=== PATIENT | male | born 1960 | race Caucasian/White ===

== ENCOUNTER 2018-10-17 10:25 | Observation (INO) | payer OTHER ==
[2018-10-17 10:37] VITALS: TEMP 97.9; BMI 39.2
[2018-10-17] MEDS ORDERED: SODIUM CHLORIDE 1,000 ML IV STA (11:53)
[2018-10-17] MEDS ORDERED: FAMOTIDINE 20 MG/50 ML IVPB 20 MG/50 ML MG IVPB ONE ×2 (11:54→12:02)
--- NOTE | 2018-10-17 11:56 | PDOC ---
History of Present Illness <Luis Manuel Hidalgo - Last Filed: 10/17/18 16:19> - General History Source: Patient - History of Present Illness Initial Comments: 10/17/18 13:15 58M with pmh of HLD, GERD and COPD presents to the ED with subxiphoid/ epigastric pain since yesterday morning. Went to Urgent Care, got normal EKG and was refereed to the ER. Pain worsens when he lays down. Hasn't eaten or drank since yesterday morning due to low appetite. Admits to some pain in the midline thoracic area as well. Pain is continuous, relieved by burping. <JeffersonHebert - Last Filed: 10/17/18 17:06> - General Chief Complaint: Pain, Acute Stated Complaint: SENT BY PCP/EPIGASTRIC PAIN Time Seen by Provider: 10/17/18 11:16 Past History <RockyLuis Manuel - Last Filed: 10/17/18 16:19> - Past Medical History Asthma: Yes Cardiac Disorders: Yes COPD: No Hypercholesterolemia: Yes - Surgical History Appendectomy: Yes Orthopedic Surgery: No (rt hip and back surgery) - Immunization History Immunization Up to Date: No - Suicide/Smoking/Psychosocial Hx Smoking Status: Yes Smoking History: Current every day smoker Have you smoked in the past 12 months: Yes Number of Cigarettes Smoked Daily: 20 Information on smoking cessation initiated: No Hx Alcohol Use: No Drug/Substance Use Hx: No Substance Use Type: None Hx Substance Use Treatment: No <Hebert Jefferson - Last Filed: 10/17/18 17:06> - Past Medical History Allergies/Adverse Reactions: Allergies Allergy/AdvReac Type Severity Reaction Status Date / Time cheese Allergy Difficulty Verified 10/17/18 12:45 Breathing Home Medications: Ambulatory Orders Omeprazole Magnesium [Prilosec (OTC)] 40 mg PO DAILY 10/09/14 Simvastatin [Zocor] 80 mg PO HS 10/17/18 Review of Systems - Review of Systems Able to Perform ROS?: Yes Is the patient limited [place] proficient: No Constitutional: No: Symptoms Reported HEENTM: No: Symptoms Reported Respiratory: No: Symptoms reported Cardiac (ROS): No: Symptoms Reported ABD/GI: Yes: See HPI : No: Symptoms Reported Musculoskeletal: No: Symptoms Reported Integumentary: No: Symptoms Reported Neurological: No: Symptoms reported All Other Systems: Reviewed and Negative <Hebert Jefferson - Last Filed: 10/17/18 17:06> *Physical Exam - Vital Signs Last Vital Signs Temp Pulse Resp BP Pulse Ox 97.9 F 88 23 H 174/89 H 93 L 10/17/18 10:29 10/17/18 14:18 10/17/18 14:18 10/17/18 14:18 10/17/18 14:18 <Luis Manuel Hidalgo - Last Filed: 10/17/18 16:19> - Vital Signs Last Vital Signs Temp Pulse Resp BP Pulse Ox 97.9 F 108 H 18 166/92 95 10/17/18 10:29 10/17/18 10:29 10/17/18 10:29 10/17/18 10:29 10/17/18 10:29 - Physical Exam General Appearance: Yes: Obese. No: Apparent Distress HEENT: positive: EOMI, LUIS, Normal ENT Inspection Respiratory/Chest: positive: Lungs Clear, Normal Breath Sounds, Decreased Breath Sounds. negative: Chest Tender, Respiratory Distress Cardiovascular: positive: Regular Rhythm, S1, S2, Tachycardia Gastrointestinal/Abdominal: positive: Normal Bowel Sounds, Tender (epigastric/ subxiphoid), Flat, Soft Musculoskeletal: positive: Normal Inspection. negative: CVA Tenderness Extremity: positive: Normal Capillary Refill, Normal Inspection, Normal Range of Motion Integumentary: positive: Normal Color, Dry, Warm Neurologic: positive: Fully Oriented, Alert, Normal Mood/Affect, Normal Response , Motor Strength 5/5 <JeffersonHebert - Last Filed: 10/17/18 17:06> Heart Score/ECG Review - History History: Slightly suspicious - Electrocardiogram EKG: Normal - Age Age: 45-65 - Risk Factors Risk Factors Heart Score: Yes Hx Hypercholesterolemia, Yes Smoking History, Yes Positive family hx of cardiac disease, Yes Hx Obesity Based on the list above the patient has:: >/=3 risk factors or Hx atherosclerotic disease - Troponin Troponin: 1-3x normal limit - Score Heart Score - Total: 4 <Hebert Jefferson - Last Filed: 10/17/18 17:06> ED Treatment Course - LABORATORY CBC & Chemistry Diagram: 10/17/18 12:12 10/17/18 12:12 - ADDITIONAL ORDERS Additional order review: Laboratory Results 10/17/18 10/17/18 15:00 12:12 Sodium 137 Potassium 4.0 Chloride 101 Carbon Dioxide 32 Anion Gap 4 L BUN 16.9 Creatinine 0.9 Est GFR (CKD-EPI)AfAm 109.50 Est GFR (CKD-EPI)NonAf 94.48 Random Glucose 106 Calcium 9.0 Total Bilirubin 0.7 AST 12 L ALT 25 Alkaline Phosphatase 50 Troponin I 0.07 H 0.07 H Total Protein 7.4 Albumin 4.4 Lipase 121 10/17/18 12:12 RBC 4.78 MCV 96.2 H MCHC 34.5 RDW 13.0 MPV 8.6 Neutrophils % 81.1 Lymphocytes % 13.4 Monocytes % 4.8 Eosinophils % 0.4 Basophils % 0.3 - Medications Given in the ED: ED Medications Discontinued Medications Generic Name Dose Route Start Last Admin Trade Name Freq PRN Reason Stop Dose Admin Aspirin 325 mg 10/17/18 15:18 10/17/18 15:44 Asa - PO 10/17/18 15:19 Not Given ONCE ONE Famotidine/Sodium Chloride 20 mg in 50 mls @ 100 mls/hr 10/17/18 11:54 12:10 Pepcid 20 Mg Premixed Ivpb - IVPB 10/17/18 12:23 100 mls/hr ONCE ONE Administration Sodium Chloride 1,000 mls @ 1,000 mls/hr 10/17/18 11:53 10/17/18 12:29 Normal Saline - IV 10/17/18 12:52 1,000 mls/hr ASDIR STA Administration <Luis Manuel Hidalgo - Last Filed: 10/17/18 16:19> - LABORATORY CBC & Chemistry Diagram: 10/17/18 12:12 10/17/18 12:12 <Hebert Jefferson - Last Filed: 10/17/18 17:06> Medical Decision Making - Medical Decision Making 10/17/18 13:25 58m with HLD, obesity, smoker and HLD presneting with subxiphoid/epigastric reproducible pain. Will need to r/o ACS with trops and EKG, will also consider aortic dissection due to mention of back pain even though pain is mild, with CTA after labs are back and if ACS is ruled out. Also considering GERD which the patioent has a history of, and more generally dyspepsia/gastric ulcers. 10/17/18 13:28 cxr WNL 10/17/18 14:34 Troponin of 0.07. We will r/o dissection with Chest and abdomen pelv CTA. 10/17/18 14:52 No pathology found on chest/abdomen/pelvis CTA, including dissection. Second trops pending at 15:12 10/17/18 16:53 Second trop identical to first one. Patient ambivalant about wanting to stay considering AMA. Convinced patient to stay for tele obs. 10/17/18 17:[address] Chandler <Hebert Jefferson - Last Filed: 10/17/18 17:06> *DC/Admit/Observation/Transfer <Luis Manuel Hidalgo - Last Filed: 10/17/18 16:19> - Discharge Dispostion Decision to Admit order: Yes <Hebert Jefferson - Last Filed: 10/17/18 17:06> Diagnosis at time of Disposition: Atypical chest pain, Elevated troponin I level - Discharge Dispostion Condition at time of disposition: Stable - Referrals Referrals: Caleb Mar MD [Staff Physician] - - Patient Instructions Printed Discharge Instructions: DI for Heart Attack Additional Instructions: Based on your tests today, there is a possibility that your chest pain may represent a heart attack or another potentially life threatening condition. We recommend that you stay in the hospital for further testing and evaluation by a cake washer. If you leave, you may have worsening chest pain, become very ill, or possibly . You will need evaluation by a cake washer as soon as possible. We have provided the number of a cake washer for you to contact. Please return to the emergency department as soon as possible to complete your evaluation.
[2018-10-17 13:15] LABS: ALBUMIN 4.4 g/dl (3.4-5.0); BILIRUBIN,TOTAL 0.7 mg/dL (0.2-1); BLOOD UREA NITROGEN 16.9 mg/dL (7-18); CREATININE 0.9 mg/dL (0.55-1.3); TOT PROT 7.4 g/dl (6.4-8.2)
[2018-10-17 13:35] LABS: BASO % 0.3 % (0-2.0); EOS % 0.4 % (0-4.5); HEMOGLOBIN 15.9 GM/dL (11.7-16.9); LYMPH % 13.4 % (8-40); MCH 33.2 pg (25.7-33.7); MCHC 34.5 g/dl (32.0-35.9); MEAN CELL VOLUME 96.2 fl (80-96); MEAN PLT VOLUME 8.6 fl (7.5-11.1); MONO % 4.8 % (3.8-10.2); NEUT % 81.1 % (42.8-82.8); PLATELET COUNT 203 K/MM3 (134-434); RBC 4.78 M/mm3 (4.00-5.60); WHITE BLOOD COUNT 8.4 K/mm3 (4.0-10.0)
--- NOTE | 2018-10-17 13:46 | PDOC ---
Documentation entered by Sole Miramontes SCRIBE, acting as scribe for Luis Manuel Hidalgo MD. Luis Manuel Hidalgo MD: This documentation has been prepared by the Kulwinder mota Sammi, SCRIBE, under my direction and personally reviewed by me in its entirety. I confirm that the documentation accurately reflects all work, treatment, procedures, and medical decision making performed by me. Attending Attestation - Resident Resident Name: Hebert Jefferson - ED Attending Attestation I have performed the following: I have examined & evaluated the patient, The case was reviewed & discussed with the resident, I agree w/resident's findings & plan, Exceptions are as noted - HPI HPI: 10/17/18 11:48 The patient is a 58 year old male, with a significant PMH of GERD, who presents to the emergency department for evaluation of 1 day of constant, mild substernal /epigastric pain that radiates towards his back. The patient states the epigastric pain is exacerbated when laying flat and is slightly relieved with burping. He notes he has not eaten since yesterday as he felt it would make the pain worse. The patient was seen at an urgent care this morning where they acquired a normal EKG and sent the patient to the ED for further evaluation. - Physicial Exam PE: 10/17/18 13:44 "GENERAL: Awake, alert, and fully oriented, in no acute distress. HEAD: No signs of trauma EYES: PERRLA, EOMI, sclera anicteric, conjunctiva clear ENT: Auricles normal inspection, hearing grossly normal, nares patent, oropharynx clear without exudates. Moist mucosa NECK: Nontender, no stepoffs, Normal ROM, supple, no lymphadenopathy, JVD, or masses LUNGS: Breath sounds equal, clear to auscultation bilaterally. No wheezes, and no crackles HEART: Regular rate and rhythm, normal S1 and S2, no murmurs, rubs or gallops ABDOMEN: + midepigastric TTP, normoactive bowel sounds. No guarding, no rebound. No masses EXTREMITIES: Normal range of motion, no edema. No clubbing or cyanosis. No cords, erythema, or tenderness NEUROLOGICAL: Cranial nerves II through XII intact. 5/5 strength and sensation in all extremities, Normal speech, normal gait, normal cerebellar function SKIN: Warm, Dry, normal turgor, no rashes or lesions noted. - Medical Decision Making 10/17/18 13:44 58 M with epigastric pain radiating to back. Will need to r/o ACS as well as dissection. Pt may also have pancreatitis. - Labs, lipase, trop - CXR - CTA to r/o dissection - GI cocktail 10/17/18 16:14 CTA negative 1st Trop 0.07, labs otherwise wnl 2nd trop stable at 0.07. I discussed results with pt and recommended admission to hospital for further testing and eval by cards. Pt initially resistant to admission. He stated he needed time to get some air and think about it. After stepping outside for 5 minutes, pt now amenable to admission Will admit to hospitalist. Cards consulted
[2018-10-17] MEDS: ASPIRIN 325 MG TABLET PO ONE ×2 (15:31→15:44)
[2018-10-17] MEDS ORDERED: ASPIRIN 325 MG TABLET ONE (15:35)
[2018-10-17] MEDS ORDERED: ACETAMINOPHEN 325 MG TABLET (FP) PO PRN (17:30)
[2018-10-17] MEDS ORDERED: MAG HYDROX/AL HYDROX/SIMETH 30 ML UNIT-DOSE CUP PO PRN (17:32)
--- NOTE | 2018-10-17 17:39 | HP ---
Admitting History and Physical - Primary Care Physician PCP: Rodolfo Mobley - Admission Chief Complaint: I had pain in my breadbasket History of Present Illness: Mr Delatorre is a pleasant 58 year old male who comes in with approximately 36 hours of epigastric pain. He says he was in his normal state of health yesterday morning, he ate breakfast without difficulty. However about 2-3 hours later he developed a gas like pain. He says that he felt like he had to burp but could not. The pain was constant and located in the retrosternal/epigastric area. It was reproducible with palpation. It radiated to the back. He says standing up made it feel better and lying down or flat made it feel worse. It does not seem to be affected by eating or drinking. At its onset it was about 3- 4/10, overnight it was a 10/10. It currently is much less. Aside from the pain he has no other complaints. He denies fevers, chills, lightheadedness, dizziness , passing out, chest pressure, shortness of breath, coughing, nausea, vomiting, diarrhea, difficulty or pain on urination, or swelling. he has chronic constipation and this is unchanged. History Source: Patient Limitations to Obtaining History: No Limitations - Past Medical History Cardiovascular: Yes: Hyperlipdemia Gastrointestinal: Yes: GERD - Past Surgical History Past Surgical History: Yes: Appendectomy, Hernia Repair, Tonsillectomy - Smoking History Smoking history: Current every day smoker Have you smoked in the past 12 months: Yes Aproximately how many cigarettes per day: 20 - Alcohol/Substance Use Hx Alcohol Use: No History of Substance Use: reports: None - Social History ADL: Independent History of Recent Travel: No Home Medications - Allergies Allergies/Adverse Reactions: Allergies Allergy/AdvReac Type Severity Reaction Status Date / Time cheese Allergy Difficulty Verified 10/17/18 12:45 Breathing - Home Medications Home Medications: Ambulatory Orders Omeprazole Magnesium [Prilosec (OTC)] 40 mg PO DAILY 10/09/14 Simvastatin [Zocor] 80 mg PO HS 10/17/18 Family Disease History - Family Disease History Family Disease History: Heart Disease: Mother (CAD/CHF), Brother (HCM) Review of Systems Findings/Remarks: Full review of systems obtained, as per HPI and otherwise negative. Physical Examination Vital Signs: Vital Signs Temperature 36.6 C 10/17/18 10:29 Pulse Rate 108 H 10/17/18 16:30 Respiratory Rate 18 10/17/18 16:30 Blood Pressure 164/94 10/17/18 16:30 O2 Sat by Pulse Oximetry (%) 96 10/17/18 16:30 Constitutional: Yes: No Distress, Calm, Obese Eyes: Yes: Conjunctiva Clear, EOM Intact, PERRL HENT: Yes: Atraumatic, Normocephalic Cardiovascular: Yes: Regular Rate and Rhythm, Other (pain reproducible). No: Gallop, Murmur, Rub Respiratory: Yes: Regular, Wheezes (in all lung [place]). No: Rales, Rhonchi Gastrointestinal: Yes: Normal Bowel Sounds, Soft. No: Distention, Tenderness Extremities: Yes: WNL Edema: No Labs: CBC, BMP 10/17/18 12:12 10/17/18 12:12 Imaging - Results Chest X-ray: Report Reviewed, Image Reviewed Cat Scan: Report Reviewed EKG: Image Reviewed Problem List - Problems (1) Atypical chest pain Assessment/Plan: -patient presents with atypical chest pain -positive family history, smoking, obesity, HLD -admit to telemetry observation -cardiac enzymes x3, first troponin 0.07 -continue aspirin 81mg -cardiology consult and will discuss further testing Code(s): R07.89 - OTHER CHEST PAIN (2) Tobacco abuse Assessment/Plan: -patient with over 30 pack year -counselled on cessation, patient uninterested -made aware that he has wheezing, which he says is chronic, which is concerning for tobacco related lung disease Code(s): Z72.0 - TOBACCO USE (3) HLD (hyperlipidemia) Assessment/Plan: -continue statin -check lipid panel in am Code(s): E78.5 - HYPERLIPIDEMIA, UNSPECIFIED (4) GERD (gastroesophageal reflux disease) Assessment/Plan: -continue PPI -prn maalox Code(s): K21.9 - GASTRO-ESOPHAGEAL REFLUX DISEASE WITHOUT ESOPHAGITIS (5) Obesity (BMI 30-39.9) Assessment/Plan: -will need outpatient weight loss program Code(s): E66.9 - OBESITY, UNSPECIFIED
[2018-10-17] MEDS ORDERED: ATORVASTATIN CA 40 MG TABLET (FP) ONE (21:38)
[2018-10-17] MEDS ORDERED: ATORVASTATIN CA 40 MG TABLET (FP) PO SCH (22:00)
--- NOTE | 2018-10-18 08:22 | PN ---
Progress Note, Physician Chief Complaint: Mr Delatorre says he is feeling good and is without complaint. Chest/abdominal pain has resolved. Denies sob and n/v. - Current Medication List Current Medications: Active Medications Acetaminophen (Tylenol -) 650 mg PO Q4H PRN PRN Reason: MILD PAIN Al Hydroxide/Mg Hydroxide (Mylanta Oral Suspension -) 30 ml PO Q6H PRN PRN Reason: DYSPEPSIA Aspirin (Asa -) 81 mg PO DAILY VERNA Atorvastatin Calcium (Lipitor -) 40 mg PO HS VERNA Last Admin: 10/17/18 21:40 Dose: 40 mg Lisinopril (Prinivil) 10 mg PO DAILY VERNA Pantoprazole Sodium (Protonix -) 40 mg PO DAILY VERNA - Objective Vital Signs: Vital Signs Temperature 36.6 C 10/17/18 10:29 Pulse Rate 88 10/18/18 06:32 Respiratory Rate 18 10/18/18 06:32 Blood Pressure 160/79 10/18/18 06:32 O2 Sat by Pulse Oximetry (%) 95 10/18/18 06:32 Constitutional: Yes: No Distress, Calm, Obese Cardiovascular: Yes: Regular Rate and Rhythm. No: Gallop, Murmur, Rub Respiratory: Yes: Regular, CTA Bilaterally. No: Rales, Rhonchi, Wheezes Gastrointestinal: Yes: Normal Bowel Sounds, Soft. No: Distention, Tenderness Extremities: Yes: WNL Edema: No Labs: CBC, BMP 10/17/18 12:12 10/17/18 12:12 Problem List - Problems (1) Atypical chest pain Code(s): R07.89 - OTHER CHEST PAIN (2) Tobacco abuse Code(s): Z72.0 - TOBACCO USE (3) HLD (hyperlipidemia) Code(s): E78.5 - HYPERLIPIDEMIA, UNSPECIFIED (4) GERD (gastroesophageal reflux disease) Code(s): K21.9 - GASTRO-ESOPHAGEAL REFLUX DISEASE WITHOUT ESOPHAGITIS (5) Obesity (BMI 30-39.9) Code(s): E66.9 - OBESITY, UNSPECIFIED (6) HTN (hypertension) Code(s): I10 - ESSENTIAL (PRIMARY) HYPERTENSION Assessment/Plan (1) Atypical chest pain Assessment/Plan: -symptoms resolved -troponins currently peaked at 0.08 but awaiting last troponin -cardiology consulted and will see -will follow up cardiology recommendations about ECHO and stress test Code(s): R07.89 - OTHER CHEST PAIN (2) Tobacco abuse Assessment/Plan: -patient with over 30 pack year -patient made aware that he cannot go outside to smoke while in the hospital Code(s): Z72.0 - TOBACCO USE (3) HLD (hyperlipidemia) Assessment/Plan: -continue statin -check lipid panel Code(s): E78.5 - HYPERLIPIDEMIA, UNSPECIFIED (4) GERD (gastroesophageal reflux disease) Assessment/Plan: -continue PPI -prn maalox Code(s): K21.9 - GASTRO-ESOPHAGEAL REFLUX DISEASE WITHOUT ESOPHAGITIS (5) Obesity (BMI 30-39.9) Assessment/Plan: -will need outpatient weight loss program Code(s): E66.9 - OBESITY, UNSPECIFIED (6) HTN -elevated overnight -may be secondary to hospitalization and nicotine withdrawal -however would benefit from better control -start lisinopril Dispo -possible discharge today pending cardiology recommendations
[2018-10-18] MEDS ORDERED: ASPIRIN 81 MG CHEWABLE TABLETS PO SCH (10:00)
[2018-10-18] MEDS ORDERED: LISINOPRIL 10 MG TABLET (FP) PO SCH (10:00)
[2018-10-18] MEDS ORDERED: PANTOPRAZOLE 40 MG TABLET (FP) PO SCH (10:00)
--- NOTE | 2018-10-18 13:02 | EKG ---
Test Reason : Blood Pressure : / mmHG Vent. Rate : 100 BPM Atrial Rate : 100 BPM P-R Int : 150 ms QRS Dur : 104 ms QT Int : 378 ms P-R-T Axes : 042 095 060 degrees QTc Int : 487 ms NORMAL SINUS RHYTHM RIGHTWARD AXIS PROLONGED QT ABNORMAL ECG WHEN COMPARED WITH ECG OF 11-JUN-2011 15:15, NO SIGNIFICANT CHANGE WAS FOUND Confirmed by MD ROBLES, ZIGGY ([id number]) on 10/18/2018 1:02:10 PM Referred By: Confirmed By:ZIGGY ARBOLEDA MD
--- NOTE | 2018-10-18 13:21 | CON.CARD ---
Consult Consult Specialty:: Cardiology Referred by:: Dr. Chandler Reason for Consultation:: Chest/epigastric pain with mildly elevated troponin. - History of Present Illness Chief Complaint: Chest/epigastric pain History of Present Illness: 58 year old obese man, active smoker, with a PMHx of HTN, hyperlipidemia, COPD and GERD presented to ED 10/17/18 with persistent epigastric pain. The patient developed epigastric pain one day prior to his presentation. The epigastric pain lasted approximately 36 hours. The pain was constant and located in the retrosternal/epigastric area. It was reproducible with palpation. It radiated to the back. He says standing up made it feel better and lying down or flat made it feel worse. It does not seem to be affected by eating or drinking. The epigastric pain resolved last night. He was found to have borderline troponin elevation (0.07 and 0.08) with mild sinus tachycardia and hypertension. ECG shows sinus rhythm with RAD and normal ST and T. - History Source History Provided By: Patient, Family Member, Medical Record Limitations to Obtaining History: No Limitations - Past Medical History Cardio/Vascular: Yes: Hyperlipdemia Gastrointestinal: Yes: GERD - Past Surgical History Past Surgical History: Yes: Appendectomy, Hernia Repair, Tonsillectomy - Alcohol/Substance Use Hx Alcohol Use: No History of Substance Use: reports: None - Smoking History Smoking history: Current every day smoker Have you smoked in the past 12 months: Yes Aproximately how many cigarettes per day: 20 - Social History ADL: Independent History of Recent Travel: No Home Medications - Allergies Allergies/Adverse Reactions: Allergies Allergy/AdvReac Type Severity Reaction Status Date / Time cheese Allergy Difficulty Verified 10/17/18 12:45 Breathing - Home Medications Home Medications: Ambulatory Orders Omeprazole Magnesium [Prilosec (OTC)] 40 mg PO DAILY 10/09/14 Simvastatin [Zocor] 80 mg PO HS 10/17/18 Aspirin [ASA -] 81 mg PO DAILY tab.chew 10/18/18 Lisinopril [Prinivil] 10 mg PO DAILY #30 tablet 10/18/18 Family Disease History - Family Disease History Family Disease History: Heart Disease: Mother (CAD/CHF), Brother (HCM) Review of Systems - Review of Systems Constitutional: reports: No Symptoms Eyes: reports: No Symptoms HENT: reports: No Symptoms Neck: reports: No Symptoms Cardiovascular: reports: No Symptoms Respiratory: reports: No Symptoms Gastrointestinal: reports: Abdominal Pain Genitourinary: reports: No Symptoms Breasts: reports: No Symptoms Reported Musculoskeletal: reports: No Symptoms Integumentary: reports: No Symptoms Neurological: reports: No Symptoms Endocrine: reports: No Symptoms Hematology/Lymphatic: reports: No Symptoms Psychiatric: reports: No Symptoms Vital Signs: Vital Signs Temperature 97.9 F 10/17/18 10:29 Pulse Rate 101 H 10/18/18 10:30 Respiratory Rate 18 10/18/18 10:30 Blood Pressure 154/93 10/18/18 10:30 O2 Sat by Pulse Oximetry (%) 92 L 10/18/18 10:30 General: Well developed. Obese. No acute distress. Head: Normocephalic. Atraumatic, Eyes: PERRLA, EOMI. Sclerae anicteric. Conjunctivae clear. Neck: Supple. No JVD. No bruits. Heart: Normal S1, S2: Regular rhythm and rate. No murmur. No gallop or rub. Lungs: Symmetrical poor air entry with prolonged expiration and diffuse rhonchi. No crackles or wheezing. Abdomen: Soft. Bowel sound positive. Non tender. No masses. Extremities: No edema. No clubbing or cyanosis. PD 2+, equal bilaterally. Neuro: Intact, no focal findings. AAO X3. - Other Data Labs, Other Data: CBC, BMP 10/17/18 12:12 10/17/18 12:12 Troponin, BNP 10/17/18 10/17/18 15:00 20:30 Troponin I 0.07 H 0.08 H Troponin, BNP 10/17/18 10/17/18 15:00 20:30 Troponin I 0.07 H 0.08 H Assessment/Plan 58 year old obese man, active smoker, with a PMHx of HTN, hyperlipidemia, COPD and GERD presented to ED 10/17/18 with persistent epigastric pain. He was found to have borderline troponin elevation (0.07 and 0.08) with mild sinus tachycardia and hypertension. ECG shows sinus rhythm with RAD and normal ST and T. Epigastric pain/atypical chest pain with borderline troponin elevation in the settings of severe hypertension (181/92) and tachycardia (101 bpm). The borderline troponin elevation could be caused by demand ischemia with possible underline CAD. The patient has no active angina and no physical signs of CHF. 1) The patient can be discharged (as he requested) from ED with close out-pt follow up. One of us would be happy to see him in office early this week. 2) Start metoprolol succinate 50 mg daily. 3) Change simvastatin to high intensity statin, atorvastatin 80 mg daily. 4) Continue aspirin and lisinopril. Please do not hesitate to call me directly at [phone] at any time if any further questions or additional issue arises regarding this patient.
--- NOTE | 2018-10-18 13:28 | DS ---
Physical Examination Vital Signs: Vital Signs Temperature 36.6 C 10/17/18 10:29 Pulse Rate 101 H 10/18/18 10:30 Respiratory Rate 18 10/18/18 10:30 Blood Pressure 154/93 10/18/18 10:30 O2 Sat by Pulse Oximetry (%) 92 L 10/18/18 10:30 Labs: CBC, BMP 10/17/18 12:12 10/17/18 12:12 Discharge Summary Reason For Visit: ATYPICAL CHEST PAIN/ELEVATED TROPONIN LEVEL Current Active Problems Atypical chest pain (Acute) Elevated troponin I level (Acute) GERD (gastroesophageal reflux disease) (Acute) HLD (hyperlipidemia) (Acute) HTN (hypertension) (Acute) Obesity (BMI 30-39.9) (Acute) Tobacco abuse (Acute) Hospital Course: Please refer to progress note for physical exam. Mr Delatorre is a 58 year old male who came in with atypical chest pain. He was admitted to the hospital on telemetry observation. Cardiac enzymes x3 were sent and negative. His EKG did not show signs of ACS. His chest pain resolved while here. He was seen by cardiology and cleared for discharge. He will follow up with Dr Taylor to schedule an outpatient stress test. He was found to be hypertensive and lisinopril was added. Aspirin 81mg daily was also added to his regimen. 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 32 minutes spent in preparation of this discharge Condition: Stable - Instructions Diet, Activity, Other Instructions: resume previous diet and activity. Follow up with Dr Taylor to schedule an outpatient stress test. Follow up with your PCP to further discuss smoking cessation. Referrals: Shiraz Taylor MD [Staff Physician] - Rodolfo Mobley MD [Staff Physician] - Disposition: HOME - Home Medications Comprehensive Discharge Medication List: Ambulatory Orders Omeprazole Magnesium [Prilosec (OTC)] 40 mg PO DAILY 10/09/14 Simvastatin [Zocor] 80 mg PO HS 10/17/18 Aspirin [ASA -] 81 mg PO DAILY tab.chew 10/18/18 Lisinopril [Prinivil] 10 mg PO DAILY #30 tablet 10/18/18
[2018-10-18 14:04] VITALS: BP 121/72; PULSE 106
== END 2018-10-18 14:00 | disposition home or self-care (01) ==
LOC: JER 10:25 → JERBED 16:54
PROVIDERS: ADMIT Internal Medicine; ATTEND Internal Medicine
PROC: 3E033GC Introduction of Other Therapeutic Substance into Peripheral Vein, Percutaneous Approach (ICD-10-PCS; principal; 2018-10-17)
PROC: 3E0337Z Introduction of Electrolytic and Water Balance Substance into Peripheral Vein, Percutaneous Approach (ICD-10-PCS; 2018-10-17)
DX: R07.89 Other chest pain (principal); R77.8 Other specified abnormalities of plasma proteins; E78.5 Hyperlipidemia, unspecified; K21.9 Gastro-esophageal reflux disease without esophagitis; J44.9 Chronic obstructive pulmonary disease, unspecified; F17.210 Nicotine dependence, cigarettes, uncomplicated; E66.9 Obesity, unspecified; Z68.39 Body mass index [BMI] 39.0-39.9, adult
CPT/HCPCS: 36415; 71045-TC-FY; 71275-TC; 74174-TC; 80053; 82550; 82553; 83690; 84484; 85025; 93005; 93010; 99285-25; G0378; J7030

== ENCOUNTER 2019-06-27 22:33 | Emergency (ER) | payer OTHER ==
[2019-06-27 23:23] VITALS: BMI 35.9
[2019-06-28] MEDS ORDERED: ACETAMINOPHEN 1000 MG/100 ML VIAL (NON FORMULARY) IVPB ONE (00:06)
[2019-06-28] MEDS ORDERED: SODIUM CHLORIDE 0.9% 1000 ML INFUS.BAG IV ONE (00:06)
[2019-06-28] MEDS ORDERED: ACETAMINOPHEN INJECTION 100 ML IVPB ONE (00:10)
[2019-06-28] MEDS ORDERED: CLINDAMYCIN 900 MG PREMIX IVPB 900 MG/50 ML BAG IVPB ONE ×2 (00:17→00:30)
[2019-06-28] MEDS ORDERED: CLINDAMYCIN 600MG PREMIX IVPB 600 MG/50 ML BAG IVPB ONE (00:29)
[2019-06-28] MEDS ORDERED: VANCOMYCIN 1 GRAM (PRE-DOCKED) 1,000 MG/250 ML BAG IVPB ONE (00:29)
[2019-06-28 01:20] LABS: BASO % 0.1 % (0-2.0); EOS % 0.6 % (0-4.5); HEMATOCRIT 41.4 % (35.4-49); HEMOGLOBIN 14.4 GM/dL (11.7-16.9); LYMPH % 5.5 % (8-40); MCHC 34.7 g/dl (32.0-35.9); MEAN CELL VOLUME 94.8 fl (80-96); MEAN PLT VOLUME 8.6 fl (7.5-11.1); MONO % 4.6 % (3.8-10.2); NEUT % 89.2 % (42.8-82.8); PLATELET COUNT 247 K/MM3 (134-434); RBC 4.36 M/mm3 (4.00-5.60); RDW 13.2 % (11.9-15.9); WHITE BLOOD COUNT 9.8 K/mm3 (4.0-10.0)
[2019-06-28 01:27] LABS: EPI CELLS 6.1 /HPF (0-5/HPF); HYALINE CASTS 4 /lpf (0-8); URINE APPEARANCE CLOUDY; URINE BACTERIA 12.7 /hpf (NEGATIVE); URINE BILIRUBIN NEGATIVE (NEGATIVE); URINE COLOR YELLOW; URINE GLUCOSE (UA) NEGATIVE (NEGATIVE); URINE KETONE NEGATIVE (NEGATIVE); URINE LEUK ESTERASE TRACE (NEGATIVE); URINE NITRITE NEGATIVE (NEGATIVE); URINE PROTEIN 2+ (NEGATIVE); URINE RBC 412 /hpf (0-4); URINE WBC 45 /hpf (0-5)
[2019-06-28 01:42] LABS: ALBUMIN 3.9 g/dl (3.4-5.0); BILIRUBIN,TOTAL 0.3 mg/dL (0.2-1); BLOOD UREA NITROGEN 28.1 mg/dL (7-18); CALCIUM 9.3 mg/dL (8.5-10.1); CREATININE 1.6 mg/dL (0.55-1.3); POTASSIUM 4.7 mmol/L (3.5-5.1); TOT PROT 7.2 g/dl (6.4-8.2)
[2019-06-28 01:44] LABS: INR 1.09 (0.83-1.09); PROTHROMBIN TIME (PATIENT) 12.9 SEC (9.7-13.0)
[2019-06-28 01:47] LABS: ACTIVATED PTT 37.3 SECONDS (25.2-36.5)
--- NOTE | 2019-06-28 02:09 | PDOC ---
Documentation entered by Nina Grace SCRIBE, acting as scribe for Essie Davidson MD. Essie Davidson MD: This documentation has been prepared by the scribe, Nina Grace SCRIBE, under my direction and personally reviewed by me in its entirety. I confirm that the documentation accurately reflects all work, treatment, procedures, and medical decision making performed by me. Attending Attestation - Resident Resident Name: CarltonlizruslanAnatoly - ED Attending Attestation I have performed the following: I have examined & evaluated the patient, The case was reviewed & discussed with the resident, I agree w/resident's findings & plan - HPI HPI: 06/28/19 00:33 The patient is a 59-year-old male with a past medical history significant for recently diagnosed HTN who presents to the emergency department with left index finger wound. The patient reports on Friday he got a bug bite, was seen at an Urgent Care where he was prescribed an antibiotics. The patient reports the finger worsened, the finger was swollen, and there was a pustule at the proximal dorsal aspect of the index finger. The patient followed up at Urgent Care, where he was given another antibiotic. The patient presents today for worsening finger swelling and right flank pain. PCP: Dr. sanabria - Physicial Exam PE: 06/28/19 00:34 GENERAL: Afebrile, Awake, alert, and fully oriented, in no acute distress HEAD: No signs of trauma NECK: Normal ROM, supple. LUNGS: Breath sounds equal, clear to auscultation bilaterally. No wheezes, and no crackles HEART: Regular rate and rhythm. ABDOMEN: +minimal right flank pain, no pain with palpation or percussion. EXTREMITIES: +Right hand swelling, large 1 cm pustule proximal, medial to the dorsal aspect of the index finger, the index finger bigger than other fingers, swelling to the lateral aspect of the hand up to the forearm. NEUROLOGICAL: Cranial nerves II through XII grossly intact. Normal speech, normal gait SKIN: Discoloration. Warm, Dry, no rashes. - Medical Decision Making 06/28/19 04:00 Patient Name: AMOS FLORES THIS IS A PRELIMINARY REPORT FROM [facility] DATE OF SERVICE: 2019-06-28 02:10:06 IMAGES: [id number] EXAM: CT ABDOMEN AND PELVIS WITHOUT INTRAVENOUS CONTRAST. HISTORY: Right flank pain COMPARISON: None. FINDINGS: 1. There is mild right hydroureteronephrosis and mild right perinephric/right periureteral fatty stranding without demonstration of an obstructing right ureteral stone. No stone is seen within a collapsed bladder. Findings suggest a recently passed stone. 2. No stone seen within the left renal collecting system. 3. Colonic diverticulosis without definite acute diverticulitis. 4. Gallstones. 5. No bowel obstruction, significant ascites or free air 06/28/19 04:23 Pt will be transferred to [facility], as we have no hnd surge in our hospital.
--- NOTE | 2019-06-28 02:28 | PDOC ---
History of Present Illness - General Chief Complaint: Back Pain Stated Complaint: BACK PAIN Time Seen by Provider: 06/27/19 23:53 History Source: Patient Exam Limitations: No Limitations - History of Present Illness Initial Comments: 06/28/19 02:24 59M with a PMH of HTN, HLD, and GERD who presents to the ER with multiple complaints. The patient states that he had sudden onset R flank pain which started around 2100 last night. The pain is sharp, nonradiating, and not associated with movement, dysuria, hematuria, nausea, vomiting. He did not take anything for the pain and denies any exacerbating or alleviating factors. The patient also complains of a L hand infection. The patient states that he first noticed "something small" 5 days ago. Since then, it has become more swollen, tender, and the pain has worsened. He went to an and had an abscess drained and was put on antibiotics. The antibiotics were switched (currently on day 2 of abx after the switch) and he states that the redness and swelling is getting worse. Denies fever, chills, CP, SOB. Past History - Past Medical History Allergies/Adverse Reactions: Allergies Allergy/AdvReac Type Severity Reaction Status Date / Time cheese Allergy Difficulty Verified 06/27/19 23:23 Breathing Home Medications: Ambulatory Orders Omeprazole Magnesium [Prilosec (OTC)] 40 mg PO DAILY 10/09/14 Simvastatin [Zocor] 80 mg PO HS 10/17/18 Lisinopril [Prinivil] 10 mg PO DAILY #30 tablet 10/18/18 Budesonide/Formeterol Fumarate [SYMBICORT 160/4.5mcg -] 2 inh PO BID 06/28/19 Metoprolol Succinate 25 mg PO DAILY 06/28/19 Asthma: Yes Cardiac Disorders: Yes COPD: No Hypercholesterolemia: Yes - Surgical History Appendectomy: Yes Orthopedic Surgery: No (rt hip and back surgery) - Immunization History Immunization Up to Date: No - Psycho Social/Smoking Cessation Hx Smoking Status: Yes Smoking History: Never smoked Have you smoked in the past 12 months: No Number of Cigarettes Smoked Daily: 20 Information on smoking cessation initiated: No Hx Alcohol Use: No Drug/Substance Use Hx: No Substance Use Type: None Hx Substance Use Treatment: No Review of Systems - Review of Systems Able to Perform ROS?: Yes Comments:: 06/28/19 03:23 GENERAL/CONSTITUTIONAL: No fever or chills. No weakness. HEAD, EYES, EARS, NOSE AND THROAT: No change in vision. No ear pain or discharge. No sore throat. CARDIOVASCULAR: No chest pain, palpitations, or lightheadedness. RESPIRATORY: No cough, wheezing, shortness of breath, or hemoptysis. GASTROINTESTINAL: No abdominal pain, nausea, vomiting, diarrhea, or constipation. GENITOURINARY: + for R flank pain. No dysuria, frequency, hematuria, or change in urination. MUSCULOSKELETAL: No joint or muscle swelling or pain. No neck or back pain. SKIN: + for infected L hand. No rash or lesions. NEUROLOGIC: No headache, numbness, tingling, focal weakness, loss of consciousness, or change in strength/sensation. Is the patient limited Tamazight proficient: No *Physical Exam - Vital Signs Last Vital Signs Temp Pulse Resp BP Pulse Ox 97.6 F 90 22 H 195/83 H 92 L 06/27/19 23:20 06/27/19 23:20 06/27/19 23:20 06/27/19 23:20 06/27/19 23:20 - Physical Exam 06/28/19 03:24 GENERAL: Well developed, well nourished. Awake and alert. No acute distress. HEENT: Normocephalic, atraumatic. Hearing grossly normal. Moist mucous membranes. PERRLA, EOMI. No conjunctival pallor. Sclera are non-icteric. NECK: Supple. Full ROM. No JVD. CARDIOVASCULAR: Regular rate and rhythm. No murmurs, rubs, or gallops. Distal pulses are 2+ and symmetric. PULMONARY: No evidence of respiratory distress. Lungs clear to auscultation bilaterally. No wheezing, rales, or rhonchi. ABDOMINAL: Soft. Non-tender. Non-distended. No rebound or guarding. GENITOURINARY: No CVA tenderness bilaterally. MUSCULOSKELETAL: Normal range of motion at all joints. No bony deformities or tenderness. EXTREMITIES: No cyanosis. No clubbing. 1-2+ b/l LE edema. No calf tenderness or swelling. SKIN: L hand is swollen. L index finger noted to have necrotic tissue on dorsal surface with erythema spreading to mid-metacarpals. Pitting edema noted in L hand. Neurovascularly intact. No jaundice. NEUROLOGICAL: Alert, awake, appropriate. Cranial nerves 2-12 intact. No deficits to light touch and temperature in lower extremities. 5/5 strength in quadriceps, hamstrings, and gastrocnemius. Normal speech. Gait is normal without ataxia. PSYCHIATRIC: Cooperative. Good eye contact. Appropriate mood and affect. ED Treatment Course - LABORATORY CBC & Chemistry Diagram: 06/28/19 00:57 06/28/19 00:57 - ADDITIONAL ORDERS Additional order review: Laboratory Results 06/28/19 06/28/19 06/28/19 00:57 00:57 00:57 PT with INR INR PTT (Actin FS) Sodium 142 Potassium 4.7 Chloride 108 H Carbon Dioxide 27 Anion Gap 6 L BUN 28.1 H Creatinine 1.6 H Est GFR (CKD-EPI)AfAm 54.23 Est GFR (CKD-EPI)NonAf 46.79 Random Glucose 168 H Lactic Acid 1.1 Calcium 9.3 Total Bilirubin 0.3 AST 35 ALT 68 H Alkaline Phosphatase 59 Troponin I Total Protein 7.2 Albumin 3.9 Urine Color Yellow Urine Appearance Cloudy Urine pH 7.0 Ur Specific [place] 1.024 Urine Protein 2+ H Urine Glucose (UA) Negative Urine Ketones Negative Urine Blood 3+ H Urine Nitrite Negative Urine Bilirubin Negative Urine Urobilinogen 1.0 Ur Leukocyte Esterase Trace Urine WBC (Auto) 45 Urine RBC (Auto) 412 Urine Casts (Auto) 4 U Epithel Cells (Auto) 6.1 U Sm Round Cell (Auto) None seen Urine Bacteria (Auto) 12.7 06/28/19 06/28/19 00:57 00:57 PT with INR 12.90 INR 1.09 PTT (Actin FS) 37.3 H Sodium Potassium Chloride Carbon Dioxide Anion Gap BUN Creatinine Est GFR (CKD-EPI)AfAm Est GFR (CKD-EPI)NonAf Random Glucose Lactic Acid Calcium Total Bilirubin AST ALT Alkaline Phosphatase Troponin I 0.03 Total Protein Albumin Urine Color Urine Appearance Urine pH Ur Specific [place] Urine Protein Urine Glucose (UA) Urine Ketones Urine Blood Urine Nitrite Urine Bilirubin Urine Urobilinogen Ur Leukocyte Esterase Urine WBC (Auto) Urine RBC (Auto) Urine Casts (Auto) U Epithel Cells (Auto) U Sm Round Cell (Auto) Urine Bacteria (Auto) 06/28/19 00:57 RBC 4.36 MCV 94.8 MCHC 34.7 RDW 13.2 MPV 8.6 Neutrophils % 89.2 H Lymphocytes % 5.5 L D Monocytes % 4.6 Eosinophils % 0.6 Basophils % 0.1 - RADIOLOGY Radiology Studies Ordered: Category Date Time Status ABDOMEN & PELVIS CT W/O CONTR [CT] Stat CT Scan 06/28/19 02:13 Taken HAND- LEFT [RAD] Stat Radiology 06/28/19 00:07 Taken - Medications Given in the ED: ED Medications Discontinued Medications Generic Name Dose Route Start Last Admin Trade Name Leela PRN Reason Stop Dose Admin Acetaminophen 1,000 mg 06/28/19 00:06 06/28/19 01:03 Ofirmev Injection - IVPB 06/28/19 00:07 1,000 mg ONCE ONE Administration Clindamycin Phosphate 900 mg in 50 mls @ 100 mls/hr 06/28/19 00:17 06/28/19 01:03 Cleocin 900 Mg Premix Ivpb - IVPB 06/28/19 00:46 100 mls/hr ONCE ONE Administration Sodium Chloride 1,000 ml 06/28/19 00:06 06/28/19 01:02 Normal Saline - IV 06/28/19 00:07 1,000 ml ONCE ONE Administration Medical Decision Making - Medical Decision Making 06/28/19 03:14 59M with a PMH of HTN who presents with a worsening L hand infection and R flank pain. Diagnosis unlikely to be related but patient has STEVEN, CBC showing L shift, and UA showing hematuria. Flank pain ddx nephrolithiasis vs AAA vs renal ca. Of note, pt's hand is showing signs of worsening infection and may require surgical intervention. 1 dose of clindamycin given. Case d/w Dr. Smith, plastics at [facility], who accepts patient's transfer. Pt auto-accepted to ER. Discharge - Discharge Information Problems reviewed: Yes Clinical Impression/Diagnosis: Infected hand, STEVEN (acute kidney injury) Condition: Guarded Disposition: TRANSFER ACUTE CARE/OTHER HOSP - Admission No - Follow up/Referral Referrals: Rodolfo Mobley MD [Primary Care Provider] - - Patient Discharge Instructions - Post Discharge Activity - Transfer to Acute Care Facility Receiving Facility Name: [facility] Accepting Physician:: Dr. Smith
[2019-06-28] MEDS ORDERED: VANCOMYCIN 1,000 MG in DEXTROSE 5%-WATER - 250 ML IVPB ONE (03:00)
[2019-06-28] MEDS ORDERED: morphine SULFATE 4 MG/ML VIAL ONE (03:21)
[2019-06-28] MEDS ORDERED: morphine CARPU-JECT 4 MG/1 ML DISP.SYRIN IVPUSH ONE (03:42)
[2019-06-28 03:43] VITALS: BP 176/72; PULSE 98; TEMP 98.4
--- NOTE | 2019-06-28 09:11 | EKG ---
Test Reason : Blood Pressure : / mmHG Vent. Rate : 093 BPM Atrial Rate : 093 BPM P-R Int : 166 ms QRS Dur : 102 ms QT Int : 356 ms P-R-T Axes : 048 079 052 degrees QTc Int : 442 ms NORMAL SINUS RHYTHM NORMAL ECG WHEN COMPARED WITH ECG OF 17-OCT-2018 10:27, NO SIGNIFICANT CHANGE WAS FOUND Confirmed by Radha Centeno ([id number]) on 06/28/2019 9:11:35 AM Referred By: Confirmed By:Radha Centeno
== END 2019-06-28 04:29 | disposition short-term general hospital (02) ==
LOC: JER 22:33
PROC: 3E03329 Introduction of Other Anti-infective into Peripheral Vein, Percutaneous Approach (ICD-10-PCS; principal; 2019-06-27)
PROC: 3E033NZ Introduction of Analgesics, Hypnotics, Sedatives into Peripheral Vein, Percutaneous Approach (ICD-10-PCS; 2019-06-27)
PROC: 3E033NZ Introduction of Analgesics, Hypnotics, Sedatives into Peripheral Vein, Percutaneous Approach (ICD-10-PCS; 2019-06-27)
PROC: 3E03329 Introduction of Other Anti-infective into Peripheral Vein, Percutaneous Approach (ICD-10-PCS; 2019-06-27)
DX: L08.89 Other specified local infections of the skin and subcutaneous tissue (principal); N17.9 Acute kidney failure, unspecified; I10 Essential (primary) hypertension; E78.00 Pure hypercholesterolemia, unspecified; Z87.09 Personal history of other diseases of the respiratory system
CPT/HCPCS: 36415; 71046-TC-FY; 73130-TC-LT-FY; 74176-TC; 80053; 81003; 83605; 84484; 85025; 85610; 85730; 87040; 87086; 93005; 93010; 99285-25; J0131; J7030

== ENCOUNTER 2022-03-28 16:58 | Emergency (ER) | payer OTHER ==
[2022-03-28 17:28] VITALS: TEMP 98.1; BMI 38.6
[2022-03-28] MEDS ORDERED: LIDOCAINE HCL 2% JELLY 10 ML CARTRIDGE PR ONE (17:42)
[2022-03-28 18:31] LABS: HEMATOCRIT 39.6 % (35.4-49); HEMOGLOBIN 13.6 GM/dL (11.7-16.9); MCH 33.1 pg (25.7-33.7); MCHC 34.4 g/dl (32.0-35.9); MEAN CELL VOLUME 96.2 fl (80-96); MEAN PLT VOLUME 7.8 fl (7.5-11.1); PLATELET COUNT 275 10^3/uL (134-434); RBC 4.12 M/mm3 (4.00-5.60); RDW 12.9 % (11.9-15.9); WHITE BLOOD COUNT 7.2 K/mm3 (4.0-10.0)
[2022-03-28 18:35] LABS: EPI CELLS >36 /uL (0-25.1); HYALINE CASTS 0 /uL (0-3.1); URINE APPEARANCE CLEAR; URINE BACTERIA 54 /uL (0-1359); URINE BILIRUBIN NEGATIVE (NEGATIVE); URINE COLOR YELLOW; URINE GLUCOSE (UA) NEGATIVE (NEGATIVE); URINE KETONE NEGATIVE (NEGATIVE); URINE LEUK ESTERASE NEGATIVE (NEGATIVE); URINE NITRITE NEGATIVE (NEGATIVE); URINE PROTEIN 2+ (NEGATIVE); URINE RBC 3756 /uL (0-23.9); URINE UROBILINOGEN 0.2 mg/dL (0.2-1.0); URINE WBC 47 /uL (0-25.8)
[2022-03-28 18:42] LABS: CALCIUM 8.9 mg/dL (8.5-10.1)
[2022-03-28 18:43] LABS: ALBUMIN 3.8 g/dl (3.4-5.0); BLOOD UREA NITROGEN 33.9 mg/dL (7-18)
[2022-03-28 18:48] LABS: BILIRUBIN,TOTAL 0.2 mg/dL (0.2-1); TOT PROT 7.2 g/dl (6.4-8.2)
[2022-03-28 19:02] VITALS: BP 151/80; PULSE 93; RESP 20
== END 2022-03-28 22:43 | disposition left against medical advice (07) ==
LOC: JER 16:58
DX: N17.9 Acute kidney failure, unspecified (principal); R31.9 Hematuria, unspecified; R33.9 Retention of urine, unspecified; K57.90 Diverticulosis of intestine, part unspecified, without perforation or abscess without bleeding
CPT/HCPCS: 36415; 72192-TC; 80053; 81003; 85027; 87086; 99284-25; C9803-CS; U0003; U0005

== ENCOUNTER 2022-03-29 11:07 | Emergency (ER) | payer OTHER ==
[2022-03-29 11:21] VITALS: TEMP 97.9; BMI 38.6
[2022-03-29] MEDS ORDERED: ACETAMINOPHEN 1000 MG/100 ML BAG IVPB ONE (12:45)
[2022-03-29] MEDS ORDERED: ACETAMINOPHEN INJECTION 100 ML IVPB ONE (12:49)
[2022-03-29] MEDS ORDERED: METOPROLOL TARTRATE 25 MG TABLET (FP) PO ONE (12:57)
[2022-03-29] MEDS ORDERED: morphine CARPU-JECT 4 MG/1 ML DISP.SYRIN IVPUSH ONE (12:57)
[2022-03-29] MEDS ORDERED: LACTATED RINGERS SOLUTION 1000 ML INFUS.BAG IV ONE (12:58)
[2022-03-29] MEDS ORDERED: METOPROLOL TARTRATE 25 MG TABLET (FP) ONE (13:14)
[2022-03-29] MEDS ORDERED: morphine SULFATE 4 MG/ML VIAL ONE (13:14)
[2022-03-29 13:25] LABS: ALBUMIN 3.7 g/dl (3.4-5.0); BLOOD UREA NITROGEN 28.7 mg/dL (7-18); CALCIUM 9.4 mg/dL (8.5-10.1)
[2022-03-29 13:28] LABS: CREATININE 1.6 mg/dL (0.55-1.3)
[2022-03-29 13:30] LABS: BILIRUBIN,TOTAL 0.5 mg/dL (0.2-1); TOT PROT 7.1 g/dl (6.4-8.2)
[2022-03-29 13:42] LABS: BASO % 0.2 % (0-2.0); EOS % 0.5 % (0-4.5); HEMATOCRIT 41.2 % (35.4-49); HEMOGLOBIN 13.8 GM/dL (11.7-16.9); LYMPH % 7.6 % (8-40); MCH 32.3 pg (25.7-33.7); MCHC 33.4 g/dl (32.0-35.9); MEAN CELL VOLUME 96.7 fl (80-96); MEAN PLT VOLUME 8.2 fl (7.5-11.1); MONO % 5.1 % (3.8-10.2); NEUT % 86.6 % (42.8-82.8); PLATELET COUNT 269 10^3/uL (134-434); RBC 4.27 M/mm3 (4.00-5.60); RDW 12.6 % (11.9-15.9); WHITE BLOOD COUNT 8.6 K/mm3 (4.0-10.0)
[2022-03-29 14:28] VITALS: BP 119/68; PULSE 84; RESP 19
== END 2022-03-29 16:05 | disposition home or self-care (01) ==
LOC: JER 11:07
PROC: 3E033GC Introduction of Other Therapeutic Substance into Peripheral Vein, Percutaneous Approach (ICD-10-PCS; principal; 2022-03-29)
DX: I12.9 Hypertensive chronic kidney disease with stage 1 through stage 4 chronic kidney disease, or unspecified chronic kidney disease (principal); N18.9 Chronic kidney disease, unspecified; R31.9 Hematuria, unspecified
CPT/HCPCS: 0241U-QW; 36415; 71045-TC-FY; 80053; 85025; 93005; 93010; 99285-25

== ENCOUNTER 2022-03-30 09:49 | Inpatient (IN) | payer OTHER ==
[2022-03-30 11:58] LABS: HEMATOCRIT 41.7 % (35.4-49); HEMOGLOBIN 14.1 GM/dL (11.7-16.9); MCH 32.4 pg (25.7-33.7); MCHC 33.7 g/dl (32.0-35.9); MEAN CELL VOLUME 96.2 fl (80-96); PLATELET COUNT 272 10^3/uL (134-434); RBC 4.34 M/mm3 (4.00-5.60); RDW 12.8 % (11.9-15.9); WHITE BLOOD COUNT 7.7 K/mm3 (4.0-10.0)
[2022-03-30 12:07] LABS: EPI CELLS 3 /uL (0-25.1); HYALINE CASTS 0 /uL (0-3.1); URINE APPEARANCE CLOUDY; URINE BILIRUBIN 1+ (NEGATIVE); URINE COLOR RED; URINE GLUCOSE (UA) NEGATIVE (NEGATIVE); URINE KETONE NEGATIVE (NEGATIVE); URINE LEUK ESTERASE 1+ (NEGATIVE); URINE NITRITE POSITIVE (NEGATIVE); URINE PROTEIN 4+ (NEGATIVE); URINE RBC 12177 /uL (0-23.9); URINE WBC 5 /uL (0-25.8)
[2022-03-30 12:17] LABS: INR 1.16 (0.83-1.09); PROTHROMBIN TIME (PATIENT) 13.4 SEC (9.7-13.0)
[2022-03-30 12:20] LABS: ACTIVATED PTT 32.8 SECONDS (25.2-36.5)
[2022-03-30 12:22] LABS: ALBUMIN 3.8 g/dl (3.4-5.0); CALCIUM 9.1 mg/dL (8.5-10.1)
[2022-03-30 12:23] LABS: BLOOD UREA NITROGEN 26.8 mg/dL (7-18)
[2022-03-30 12:26] LABS: CREATININE 1.6 mg/dL (0.55-1.3)
[2022-03-30 12:27] LABS: BILIRUBIN,TOTAL 0.6 mg/dL (0.2-1); TOT PROT 7.2 g/dl (6.4-8.2)
[2022-03-30] MEDS ORDERED: CEFTRIAXONE 1,000 MG in DEXTROSE 5%-WATER - 50 ML IVPB ONE (13:02)
[2022-03-30 13:11] LABS: ANISOCYTOSIS 0; HELMET CELLS 0; HOWELL-JOLLY BODIES 0; MACROCYTOSIS 0; OVALOCYTE 0; ROULEAU 0; SICKELED CELLS 0; TARGET CELLS 0; TEAR DROP CELLS 0; TOXIC GRANULATION 0
[2022-03-30] MEDS ORDERED: CEFTRIAXONE 1 GM/50 ML BAG ONE (13:34)
[2022-03-30] MEDS ORDERED: LISINOPRIL 10 MG TABLET ONE (13:34)
[2022-03-30] MEDS: SODIUM CHLORIDE 0.45% 1,000 ML IV SCH (13:52)
[2022-03-30] MEDS: LISINOPRIL 10 MG TABLET PO SCH (13:52)
[2022-03-30] MEDS: metoPROLOL SUCCINATE 25 MG TAB.SR.24H (FP) PO SCH (13:52)
[2022-03-30] MEDS ORDERED: morphine CARPU-JECT 2 MG/1 ML DISP.SYRIN IVPUSH ONE (14:22)
[2022-03-30] MEDS ORDERED: ACETAMINOPHEN 325 MG TABLET (FP) ONE (22:18)
[2022-03-30] MEDS: ATORVASTATIN CA 40 MG TABLET (FP) PO SCH (22:20)
[2022-03-31] MEDS ORDERED: MELATONIN 5 MG TABLETS PO ONE (03:37)
[2022-03-31] MEDS ORDERED: MELATONIN 5 MG TABLETS ONE (04:14)
[2022-03-31] MEDS ORDERED: ATORVASTATIN CA 40 MG TABLET (FP) ONE ×2 (04:14→22:03)
[2022-03-31] MEDS ORDERED: ACETAMINOPHEN 325 MG TABLET (FP) ONE (04:30)
[2022-03-31] MEDS: ACETAMINOPHEN 325 MG TABLET (FP) PO PRN (05:21)
[2022-03-31 09:16] LABS: BASO % 0.3 % (0-2.0); EOS % 0.4 % (0-4.5); HEMATOCRIT 37.5 % (35.4-49); HEMOGLOBIN 12.6 GM/dL (11.7-16.9); LYMPH % 6.2 % (8-40); MCH 32.3 pg (25.7-33.7); MCHC 33.6 g/dl (32.0-35.9); MEAN CELL VOLUME 96.2 fl (80-96); MEAN PLT VOLUME 8.3 fl (7.5-11.1); MONO % 9.9 % (3.8-10.2); NEUT % 83.2 % (42.8-82.8); PLATELET COUNT 247 10^3/uL (134-434); RDW 12.9 % (11.9-15.9); WHITE BLOOD COUNT 7.2 K/mm3 (4.0-10.0)
[2022-03-31 09:23] LABS: ALBUMIN 3.4 g/dl (3.4-5.0)
[2022-03-31 09:24] LABS: TOT PROT 6.6 g/dl (6.4-8.2)
[2022-03-31 09:25] LABS: BILIRUBIN,TOTAL 0.5 mg/dL (0.2-1); BLOOD UREA NITROGEN 26.9 mg/dL (7-18)
[2022-03-31 09:26] LABS: CALCIUM 8.9 mg/dL (8.5-10.1); CREATININE 1.5 mg/dL (0.55-1.3)
[2022-03-31] MEDS ORDERED: LISINOPRIL 10 MG TABLET ONE (09:32)
[2022-03-31] MEDS ORDERED: TAMSULOSIN HCL 0.4 MG CAP ONE (09:32)
[2022-03-31] MEDS ORDERED: metoPROLOL SUCCINATE 25 MG TAB.SR.24H (FP) PO ONE (09:32)
[2022-03-31] MEDS ORDERED: CEFTRIAXONE 1 GM/50 ML BAG ONE (09:32)
[2022-03-31] MEDS: metoPROLOL SUCCINATE 25 MG TAB.SR.24H (FP) PO SCH (10:36)
[2022-03-31] MEDS: TAMSULOSIN HCL 0.4 MG CAP PO SCH (10:36)
[2022-03-31] MEDS: LISINOPRIL 10 MG TABLET PO SCH (10:36)
[2022-03-31] MEDS: FINASTERIDE 5 MG TABLET (FP) PO SCH (10:36)
[2022-03-31] MEDS: CEFTRIAXONE 1 GM in DEXTROSE 5%-WATER - 50 ML IVPB SCH (10:36)
[2022-03-31] MEDS: BUDESONIDE/FORMETEROL FUMARATE 160/4.5 mcg INHALER IH SCH ×2 (14:04→17:28)
[2022-03-31] MEDS: SODIUM CHLORIDE 0.45% 1,000 ML IV SCH (17:15)
[2022-03-31] MEDS: ATORVASTATIN CA 40 MG TABLET (FP) PO SCH (22:34)
[2022-04-01] MEDS: BUDESONIDE/FORMETEROL FUMARATE 160/4.5 mcg INHALER IH SCH ×3 (01:43→21:51)
[2022-04-01 02:30] VITALS: BMI 36.5
[2022-04-01] MEDS: FINASTERIDE 5 MG TABLET (FP) PO SCH (09:08)
[2022-04-01] MEDS: metoPROLOL SUCCINATE 25 MG TAB.SR.24H (FP) PO SCH (09:08)
[2022-04-01] MEDS: LISINOPRIL 10 MG TABLET PO SCH (09:08)
[2022-04-01] MEDS: ACETAMINOPHEN 325 MG TABLET (FP) PO PRN (09:09)
[2022-04-01] MEDS: TAMSULOSIN HCL 0.4 MG CAP PO SCH (09:09)
[2022-04-01] MEDS: CEFTRIAXONE 1 GM in DEXTROSE 5%-WATER - 50 ML IVPB SCH (09:09)
[2022-04-01] MEDS ORDERED: PROPOFOL 20 ML ONE ×3 (10:59→13:50)
[2022-04-01] MEDS ORDERED: MIDAZOLAM HCL 2 MG/2 ML SINGLE DOSE VIAL ONE ×2 (10:59→13:48)
[2022-04-01] MEDS ORDERED: FENTANYL CITRATE/PF 50 MCG/ML VIAL ONE ×6 (10:59→13:04)
[2022-04-01] MEDS ORDERED: SUCCINYLCHOLINE CHLORIDE 200 MG/10 ML SYRINGE ONE (11:00)
[2022-04-01] MEDS ORDERED: ceFAZolin SODIUM 1 GM VIAL IVPB ONE (12:30)
[2022-04-01] MEDS ORDERED: GENTAMICIN SO4 80 MG/2 ML VIAL IVPB ONE (12:35)
[2022-04-01] MEDS ORDERED: GENTAMICIN SO4 80 MG/2 ML VIAL ONE (12:36)
[2022-04-01] MEDS ORDERED: ONDANSETRON 4 MG/2 ML VIAL ONE (12:36)
[2022-04-01] MEDS ORDERED: ceFAZolin SODIUM 1 GM VIAL ONE (12:36)
[2022-04-01] MEDS ORDERED: DEXAMETHASONE SOD PHOSPHATE 4 MG/1 ML VIAL ONE (12:36)
[2022-04-01] MEDS ORDERED: ACETAMINOPHEN 325 MG TABLET (FP) PO PRN (14:19)
[2022-04-01] MEDS ORDERED: ONDANSETRON 4 MG/2 ML VIAL IVPUSH PRN (14:24)
[2022-04-01] MEDS ORDERED: LACTATED RINGERS SOLUTION 1,000 ML IV SCH (14:30)
[2022-04-01] MEDS: SODIUM CHLORIDE 0.45% 1,000 ML IV SCH ×2 (17:09)
[2022-04-01] MEDS ORDERED: ATORVASTATIN CA 40 MG TABLET (FP) PO SCH (22:00)
[2022-04-02] MEDS ORDERED: TAMSULOSIN HCL 0.4 MG CAP PO SCH (08:30)
[2022-04-02 09:43] VITALS: BP 140/60; PULSE 82; RESP 18; TEMP 98.4
[2022-04-02] MEDS: BUDESONIDE/FORMETEROL FUMARATE 160/4.5 mcg INHALER IH SCH (09:56)
[2022-04-02] MEDS ORDERED: LISINOPRIL 10 MG TABLET PO SCH (10:00)
[2022-04-02] MEDS ORDERED: CEFTRIAXONE 1 GM in DEXTROSE 5%-WATER - 50 ML IVPB SCH (10:00)
[2022-04-02] MEDS ORDERED: FINASTERIDE 5 MG TABLET (FP) PO SCH (10:00)
[2022-04-02] MEDS ORDERED: metoPROLOL SUCCINATE 25 MG TAB.SR.24H (FP) PO SCH (10:00)
[2022-04-02] MEDS ORDERED: SULFAMETHOXAZOLE/TRIMETHOPRIM 800MG/160MG D.S. TABLET PO SCH (10:00)
== END 2022-04-02 14:02 | disposition home or self-care (01) | DRG 699 ==
LOC: JER 09:49 → JERBED 11:41 → J6S 04-01 00:21
PROVIDERS: ADMIT Internal Medicine; ATTEND Internal Medicine
PROC: 0T9B80Z Drainage of Bladder with Drainage Device, Via Natural or Artificial Opening Endoscopic (ICD-10-PCS; principal; 2022-04-01 14:30)
DX: T83.091A Other mechanical complication of indwelling urethral catheter, initial encounter (principal); N17.9 Acute kidney failure, unspecified; R31.0 Gross hematuria; E78.5 Hyperlipidemia, unspecified; I10 Essential (primary) hypertension; R33.9 Retention of urine, unspecified; Y83.9 Surgical procedure, unspecified as the cause of abnormal reaction of the patient, or of later complication, without mention of misadventure at the time of the procedure; Z85.51 Personal history of malignant neoplasm of bladder; K21.9 Gastro-esophageal reflux disease without esophagitis; I12.9 Hypertensive chronic kidney disease with stage 1 through stage 4 chronic kidney disease, or unspecified chronic kidney disease; N18.9 Chronic kidney disease, unspecified; F17.210 Nicotine dependence, cigarettes, uncomplicated
CPT/HCPCS: 0241U-QW; 36415; 71045-TC-FY; 76000-TC-FY; 80053; 81003; 85025; 85610; 85730; 86850; 86900; 86901; 87086; 93005; 93010; 94760; 99285-25

== ENCOUNTER 2022-05-03 15:20 | Emergency (ER) | payer OTHER ==
[2022-05-03 15:25] VITALS: BP 161/80; PULSE 117; RESP 18; TEMP 97.9; BMI 39.2
[2022-05-03 18:22] LABS: EPI CELLS 29 /uL (0-25.1); HYALINE CASTS 0 /uL (0-3.1); URINE APPEARANCE CLOUDY; URINE BACTERIA 4 /uL (0-1359); URINE BILIRUBIN NEGATIVE (NEGATIVE); URINE COLOR YELLOW; URINE GLUCOSE (UA) NEGATIVE (NEGATIVE); URINE KETONE NEGATIVE (NEGATIVE); URINE LEUK ESTERASE 1+ (NEGATIVE); URINE NITRITE NEGATIVE (NEGATIVE); URINE PROTEIN 2+ (NEGATIVE); URINE RBC 7761 /uL (0-23.9); URINE WBC 261 /uL (0-25.8)
[2022-05-03 19:29] LABS: BASO % 0.2 % (0-2.0); EOS % 0.8 % (0-4.5); HEMATOCRIT 38.6 % (35.4-49); HEMOGLOBIN 12.9 GM/dL (11.7-16.9); LYMPH % 8.2 % (8-40); MCH 31.9 pg (25.7-33.7); MCHC 33.3 g/dl (32.0-35.9); MEAN PLT VOLUME 7.8 fl (7.5-11.1); MONO % 5.6 % (3.8-10.2); NEUT % 85.2 % (42.8-82.8); PLATELET COUNT 314 10^3/uL (134-434); RBC 4.02 M/mm3 (4.00-5.60); RDW 14.2 % (11.9-15.9); WHITE BLOOD COUNT 8.4 K/mm3 (4.0-10.0)
[2022-05-03 19:37] LABS: ALBUMIN 3.9 g/dl (3.4-5.0); CALCIUM 9.5 mg/dL (8.5-10.1)
[2022-05-03 19:41] LABS: CREATININE 1.4 mg/dL (0.55-1.3)
[2022-05-03 19:42] LABS: BILIRUBIN,TOTAL 0.4 mg/dL (0.2-1); TOT PROT 7.3 g/dl (6.4-8.2)
[2022-05-03] MEDS ORDERED: CEFPODOXIME PROXETIL 200 MG TABLET [NF] PO ONE (20:08)
== END 2022-05-03 20:33 | disposition home or self-care (01) ==
LOC: JER 15:20
DX: N30.90 Cystitis, unspecified without hematuria (principal); N13.8 Other obstructive and reflux uropathy; N17.9 Acute kidney failure, unspecified
CPT/HCPCS: 36415; 80053; 81003; 85025; 87086; 99283-25

== ENCOUNTER 2022-05-22 23:09 | Emergency (ER) | payer OTHER ==
[2022-05-22 23:24] VITALS: BP 134/81; PULSE 116; RESP 20; TEMP 97.8; BMI 36.1
== END 2022-05-23 01:29 | disposition home or self-care (01) ==
LOC: JER 23:09
DX: R33.9 Retention of urine, unspecified (principal); R31.9 Hematuria, unspecified
CPT/HCPCS: 99283-25

== ENCOUNTER 2022-05-25 05:50 | Inpatient (IN) | payer OTHER ==
[2022-05-25 07:11] LABS: EPI CELLS 1 /uL (0-25.1); HYALINE CASTS 6 /uL (0-3.1); URINE APPEARANCE TURBID; URINE BILIRUBIN 2+ (NEGATIVE); URINE COLOR RED; URINE GLUCOSE (UA) NEGATIVE (NEGATIVE); URINE KETONE NEGATIVE (NEGATIVE); URINE LEUK ESTERASE 2+ (NEGATIVE); URINE NITRITE POSITIVE (NEGATIVE); URINE PROTEIN 2+ (NEGATIVE); URINE RBC 42750 /uL (0-23.9); URINE UROBILINOGEN 0.2 mg/dL (0.2-1.0); URINE WBC 1175 /uL (0-25.8)
[2022-05-25] MEDS ORDERED: SODIUM CHLORIDE 1,000 ML IV STA (08:05)
[2022-05-25] MEDS ORDERED: PIPERACILLIN/TAZOB 3.375 GM 3.375 GM in DEXTROSE 5%-WATER - 50 ML IVPB ONE (08:19)
[2022-05-25] MEDS ORDERED: PIPERACILLIN/TAZOB 3.375 GM 3.375 GM/50 ML BAG IVPB ONE (08:41)
[2022-05-25] MEDS ORDERED: ALBUTEROL SO4 2.5/IPRATROPIUM 0.5 INH SOL 3 ML VIAL.NEB. NEB ONE (08:41)
[2022-05-25 08:48] LABS: BASO % 0.3 % (0-2.0); EOS % 1.8 % (0-4.5); HEMATOCRIT 37.5 % (35.4-49); HEMOGLOBIN 12.8 GM/dL (11.7-16.9); LYMPH % 7.5 % (8-40); MCH 33.1 pg (25.7-33.7); MCHC 34.1 g/dl (32.0-35.9); MEAN CELL VOLUME 96.9 fl (80-96); MONO % 4.1 % (3.8-10.2); NEUT % 86.3 % (42.8-82.8); PLATELET COUNT 272 10^3/uL (134-434); RBC 3.87 M/mm3 (4.00-5.60); RDW 14.3 % (11.9-15.9)
[2022-05-25] MEDS: ALBUTEROL SO4 2.5/IPRATROPIUM 0.5 INH SOL 3 ML VIAL.NEB. NEB SCH ×2 (08:48→09:08)
[2022-05-25 09:13] LABS: ALBUMIN 3.4 g/dl (3.4-5.0); BLOOD UREA NITROGEN 36.7 mg/dL (7-18); CALCIUM 9.4 mg/dL (8.5-10.1)
[2022-05-25 09:15] LABS: URINE BACTERIA NO SEEN /uL (0-1359)
[2022-05-25 09:16] LABS: CREATININE 1.8 mg/dL (0.55-1.3)
[2022-05-25 09:18] LABS: BILIRUBIN,TOTAL 0.3 mg/dL (0.2-1); TOT PROT 6.9 g/dl (6.4-8.2)
[2022-05-25] MEDS ORDERED: PANTOPRAZOLE 40 MG TABLET PO SCH (10:45)
[2022-05-25] MEDS ORDERED: metoPROLOL SUCCINATE 25 MG TAB.SR.24H (FP) PO ONE (11:11)
[2022-05-25] MEDS: SODIUM CHLORIDE 0.45% 1,000 ML IV SCH (11:18)
[2022-05-25] MEDS: METOPROLOL TARTRATE 25 MG TABLET (FP) PO SCH ×2 (11:18→21:13)
[2022-05-25] MEDS ORDERED: PANTOPRAZOLE 40 MG TABLET PO ONE (11:20)
[2022-05-25] MEDS: AMPICILLIN NA/SULBACTAM NA 3 GM in SODIUM CHLORIDE 100 ML IVPB SCH ×2 (11:21→17:47)
[2022-05-25 17:29] VITALS: BMI 33.0
[2022-05-25] MEDS: traMADol HCL 50 MG TABLET PO PRN (17:45)
[2022-05-25] MEDS: PANTOPRAZOLE 40 MG TABLET PO SCH (17:47)
[2022-05-25] MEDS: ATORVASTATIN CA 40 MG TABLET (FP) PO SCH (21:13)
[2022-05-25 22:25] VITALS: RESP 20
[2022-05-26] MEDS: traMADol HCL 50 MG TABLET PO PRN ×3 (01:21→20:53)
[2022-05-26] MEDS: ACETAMINOPHEN 325 MG TABLET (FP) PO PRN ×2 (02:09→13:10)
[2022-05-26] MEDS: AMPICILLIN NA/SULBACTAM NA 3 GM in SODIUM CHLORIDE 100 ML IVPB SCH ×3 (02:10→17:02)
[2022-05-26] MEDS: TAMSULOSIN HCL 0.4 MG CAP PO SCH (08:36)
[2022-05-26] MEDS: METOPROLOL TARTRATE 25 MG TABLET (FP) PO SCH ×2 (09:24→22:27)
[2022-05-26] MEDS: PANTOPRAZOLE 40 MG TABLET PO SCH (09:24)
[2022-05-26 10:32] LABS: BASO % 0.3 % (0-2.0); EOS % 2.6 % (0-4.5); HEMATOCRIT 35.5 % (35.4-49); HEMOGLOBIN 11.8 GM/dL (11.7-16.9); LYMPH % 7.3 % (8-40); MCH 32.4 pg (25.7-33.7); MCHC 33.3 g/dl (32.0-35.9); MEAN CELL VOLUME 97.2 fl (80-96); MEAN PLT VOLUME 8.5 fl (7.5-11.1); MONO % 4.5 % (3.8-10.2); NEUT % 85.3 % (42.8-82.8); PLATELET COUNT 268 10^3/uL (134-434); RBC 3.65 M/mm3 (4.00-5.60); RDW 14.3 % (11.9-15.9); WHITE BLOOD COUNT 8.1 K/mm3 (4.0-10.0)
[2022-05-26 11:07] LABS: CALCIUM 8.9 mg/dL (8.5-10.1)
[2022-05-26 11:08] LABS: BLOOD UREA NITROGEN 23.1 mg/dL (7-18)
[2022-05-26 11:11] LABS: CREATININE 1.4 mg/dL (0.55-1.3)
[2022-05-26 11:13] LABS: BILIRUBIN,TOTAL 0.4 mg/dL (0.2-1); TOT PROT 6.1 g/dl (6.4-8.2)
[2022-05-26] MEDS ORDERED: POLYETHYLENE GLYCOL (HEALTHYLAX) 3350 17 GM PACKET PO ONE (12:30)
[2022-05-26] MEDS: SODIUM CHLORIDE 0.45% 1,000 ML IV SCH (16:25)
[2022-05-26] MEDS: LIDOCAINE 5% TOPICAL PATCH TP SCH (16:26)
[2022-05-26] MEDS ORDERED: LIDOCAINE PATCH REMOVAL MC SCH (22:00)
[2022-05-26] MEDS: ATORVASTATIN CA 40 MG TABLET (FP) PO SCH (22:27)
[2022-05-27] MEDS: AMPICILLIN NA/SULBACTAM NA 3 GM in SODIUM CHLORIDE 100 ML IVPB SCH ×2 (01:17→09:51)
[2022-05-27] MEDS ORDERED: MAG HYDROX/AL HYDROX/SIMETH 30 ML UNIT-DOSE CUP PO PRN (01:47)
[2022-05-27] MEDS: traMADol HCL 50 MG TABLET PO PRN (03:30)
[2022-05-27 07:26] VITALS: BP 172/82; PULSE 78; TEMP 98.3
[2022-05-27] MEDS: TAMSULOSIN HCL 0.4 MG CAP PO SCH (08:55)
[2022-05-27] MEDS: METOPROLOL TARTRATE 25 MG TABLET (FP) PO SCH (09:50)
[2022-05-27] MEDS: PANTOPRAZOLE 40 MG TABLET PO SCH (09:50)
[2022-05-27] MEDS: LIDOCAINE 5% TOPICAL PATCH TP SCH (09:50)
[2022-05-27 11:26] LABS: BASO % 0.3 % (0-2.0); EOS % 2.9 % (0-4.5); HEMATOCRIT 36.2 % (35.4-49); HEMOGLOBIN 12.2 GM/dL (11.7-16.9); LYMPH % 8.3 % (8-40); MCH 32.5 pg (25.7-33.7); MCHC 33.8 g/dl (32.0-35.9); MEAN CELL VOLUME 96.3 fl (80-96); MEAN PLT VOLUME 8.4 fl (7.5-11.1); MONO % 5.4 % (3.8-10.2); NEUT % 83.1 % (42.8-82.8); PLATELET COUNT 264 10^3/uL (134-434); RBC 3.76 M/mm3 (4.00-5.60); WHITE BLOOD COUNT 8.1 K/mm3 (4.0-10.0)
[2022-05-27 12:01] LABS: BLOOD UREA NITROGEN 21.7 mg/dL (7-18); CREATININE 1.3 mg/dL (0.55-1.3)
[2022-05-27 12:03] LABS: BILIRUBIN,TOTAL 0.4 mg/dL (0.2-1); TOT PROT 6.1 g/dl (6.4-8.2)
== END 2022-05-27 11:28 | disposition home or self-care (01) | DRG 687 ==
LOC: JER 05:50 → JERBED 09:43 → J8W 15:43
PROVIDERS: ADMIT Internal Medicine; ATTEND Nurse Practitioner Family
DX: C67.9 Malignant neoplasm of bladder, unspecified (principal); N17.9 Acute kidney failure, unspecified; I10 Essential (primary) hypertension; E78.5 Hyperlipidemia, unspecified; J44.9 Chronic obstructive pulmonary disease, unspecified; N40.0 Benign prostatic hyperplasia without lower urinary tract symptoms; R31.0 Gross hematuria; K21.9 Gastro-esophageal reflux disease without esophagitis; E66.9 Obesity, unspecified; Z68.33 Body mass index [BMI] 33.0-33.9, adult; T83.098A Other mechanical complication of other urinary catheter, initial encounter; Y83.8 Other surgical procedures as the cause of abnormal reaction of the patient, or of later complication, without mention of misadventure at the time of the procedure
CPT/HCPCS: 0241U-QW; 36415; 71045-TC-FY; 80053; 81003; 83735; 85025; 87086; 93005; 93010; 99285-25

== ENCOUNTER 2022-05-28 03:50 | Emergency (ER) | payer OTHER ==
[2022-05-28 03:57] VITALS: RESP 17; TEMP 97.6; BMI 35.9
[2022-05-28] MEDS ORDERED: LIDOCAINE HCL 2% JELLY 10 ML CARTRIDGE UR ONE (04:08)
[2022-05-28] MEDS ORDERED: LIDOCAINE HCL 2% JELLY 11 ML TP ONE (04:15)
[2022-05-28 04:32] VITALS: BP 108/71; PULSE 103
== END 2022-05-28 05:00 | disposition home or self-care (01) ==
LOC: JER 03:50
DX: R33.9 Retention of urine, unspecified (principal)
CPT/HCPCS: 99282-25

== ENCOUNTER 2022-05-31 23:26 | Emergency (ER) | payer OTHER ==
[2022-05-31 23:32] VITALS: RESP 18; BMI 35.9
[2022-06-01 00:56] VITALS: BP 144/68; PULSE 89; TEMP 98.5
[2022-06-01 01:46] LABS: EPI CELLS 2 /uL (0-25.1); HYALINE CASTS 4 /uL (0-3.1); PH,URINE 5.5 (5.0-8.0); URINE APPEARANCE TURBID; URINE BACTERIA 3 /uL (0-1359); URINE BILIRUBIN NEGATIVE (NEGATIVE); URINE COLOR RED; URINE GLUCOSE (UA) NEGATIVE (NEGATIVE); URINE KETONE NEGATIVE (NEGATIVE); URINE LEUK ESTERASE 2+ (NEGATIVE); URINE NITRITE NEGATIVE (NEGATIVE); URINE PROTEIN 2+ (NEGATIVE); URINE WBC 704 /uL (0-25.8)
[2022-06-01 07:04] LABS: URINE RBC 22788.2 /uL (0-23.9)
== END 2022-06-01 01:30 | disposition home or self-care (01) ==
LOC: JER 23:26
DX: T83.091A Other mechanical complication of indwelling urethral catheter, initial encounter (principal); R31.9 Hematuria, unspecified
CPT/HCPCS: 81003; 87086; 99283-25

== ENCOUNTER 2022-06-01 13:49 | Emergency (ER) | payer OTHER ==
[2022-06-01 13:55] VITALS: RESP 18; BMI 34.9
[2022-06-01 16:46] LABS: BASO % 0.3 % (0-2.0); EOS % 1.6 % (0-4.5); HEMATOCRIT 35.1 % (35.4-49); HEMOGLOBIN 11.8 GM/dL (11.7-16.9); LYMPH % 6.9 % (8-40); MCH 32.6 pg (25.7-33.7); MCHC 33.6 g/dl (32.0-35.9); MEAN CELL VOLUME 96.9 fl (80-96); MEAN PLT VOLUME 7.8 fl (7.5-11.1); MONO % 6.7 % (3.8-10.2); NEUT % 84.5 % (42.8-82.8); PLATELET COUNT 275 10^3/uL (134-434); RBC 3.62 M/mm3 (4.00-5.60); RDW 14.3 % (11.9-15.9); WHITE BLOOD COUNT 8.9 K/mm3 (4.0-10.0)
[2022-06-01 17:10] LABS: ALBUMIN 3.2 g/dl (3.4-5.0); CALCIUM 8.9 mg/dL (8.5-10.1)
[2022-06-01 17:11] LABS: BLOOD UREA NITROGEN 23.9 mg/dL (7-18)
[2022-06-01 17:13] LABS: CREATININE 1.8 mg/dL (0.55-1.3)
[2022-06-01 17:15] LABS: BILIRUBIN,TOTAL 0.4 mg/dL (0.2-1); TOT PROT 6.4 g/dl (6.4-8.2)
[2022-06-01 17:56] VITALS: BP 142/75; PULSE 111; TEMP 98.7
[2022-06-01] MEDS ORDERED: SODIUM CHLORIDE 1,000 ML IV STA (18:02)
== END 2022-06-01 18:00 | disposition left against medical advice (07) ==
LOC: JER 13:49
DX: N17.9 Acute kidney failure, unspecified (principal); T83.091A Other mechanical complication of indwelling urethral catheter, initial encounter
CPT/HCPCS: 36415; 80053; 85025; 99283-25

== ENCOUNTER 2022-06-05 22:06 | Emergency (ER) | payer OTHER ==
[2022-06-05 22:38] VITALS: BP 117/74; PULSE 129; RESP 19; TEMP 97.8; BMI 34.2
== END 2022-06-05 23:28 | disposition home or self-care (01) ==
LOC: JER 22:06
DX: R33.9 Retention of urine, unspecified (principal)
CPT/HCPCS: 99282-25